=== PATIENT | female | born 1930 | race Caucasian/White ===

== ENCOUNTER 2017-01-04 15:50 | Inpatient (IN) | payer OTHER ==
[~2017-01-04] VITALS: Ht 167.6 cm; Wt 93.5 kg
[~2017-01-04 15:50] MED LIST: ALENDRONATE SOD70 M2 PO; ALLOPURINOL100 MG PO; AMLODIPINE BESYL5 M1 PO; ASPIR 8181 MG PO; ATORVASTATIN CA40 M1 PO; CARVEDILOL25 MG PO; CARVEDILOL3.125 M1 PO; CARVEDILOL6.25 M1 PO; CLEOCIN HCL300 MG PO; COLACE100 MG PO; D3-50001 TAB PO; ENALAPRIL MALEA10 MG PO; ENALAPRIL10 MG PO; ESCITALOPRAM20 M1 PO; FUROCOT40 MG PO; FUROSEMIDE40 MG PO; GABAPENTIN600 M1 PO; GLIPIZIDE5 M2 PO; GLIPIZIDE5 MG PO; GLUCOTROL5 M1 PO; GLUCOTROL5 MG PO; GOOD SENSE OMEP20 MG PO; HYDRALAZINE HCL50 MG PO; HYDROLAZINE; IBUPROFEN600 MG PO; ISOSORBIDE MONO30 MG PO; LAC PO; LASIX40 MG PO; LEVOFLOXACIN I150 ML IV; LIPI20 PO; MACROBID100 MG PO; MASON25 MG PO; METOPROLOL SR25 MG PO; METOPROLOL25 MG PO; OMEPRAZOLE DR20 M1 PO; PROAIR HFA0.09 MG/A1 INH; PROAIR RES117 MCG/Ac IH; REQUIP0.5 MG PO; SORBITRATE PO; TRAMADOL HCL50 MG PO; TRICOR145 MG PO; ZYL100 PO; [UNRECOGNIZED DRUG - OTHER]
[2017-01-04 17:31] LABS: BASOPHIL % 0.6 % (0-2); PLATELET COUNT 160 x10^3mcL (130-400)
[2017-01-04 17:33] LABS: RED CELL DISTRIBUTION WIDTH 16.6 % (11.5-14.5)
[2017-01-04 17:43] LABS: ALKALINE PHOSPHATASE 101 U/L (46-116); ALT/SGPT 16 U/L (14-59); AST/SGOT 18 U/L (15-37); BILIRUBIN TOTAL 0.43 mg/dL (0.20-1.00); CALCIUM 8.6 mg/dL (8.5-10.1); CARBON DIOXIDE 34.7 mmol/L (21-32); CHLORIDE SERUM 99 mmol/L (98-107); CREATININE SERUM 2.2 mg/dL (0.6-1.0); GLUCOSE SERUM 150 mg/dL (74-106); LIPASE 192 IU/L (73-393); POTASSIUM SERUM 3.7 mmol/L (3.5-5.1); SODIUM SERUM 143 mmol/L (136-145); TOTAL PROTEIN, SERUM 7.2 g/dL (6.4-8.2)
[2017-01-04 19:22] LABS: T3 TOTAL 0.98 ng/mL
[2017-01-04 19:26] LABS: CHOLESTEROL/HDL RATIO 3.1; PHOSPHOROUS 4.6 mg/dL (2.5-4.9)
[2017-01-04 19:39] LABS: FREE T4 0.99 ng/dL (0.76-1.46); T4(THYROXINE) 5.9 ug/dL (4.7-13.3)
[2017-01-04 20:01] VITALS: BP 133/57
[2017-01-05 00:50] LABS: microscopic required? YES; urine erythrocyte 1+ (NEGATIVE)
[2017-01-05 05:30] VITALS: BP 115/70
[2017-01-05 06:39] LABS: BASOPHIL % 0.2 % (0-2); PLATELET COUNT 145 x10^3mcL (130-400)
[2017-01-05 06:47] LABS: CALCIUM 8.7 mg/dL (8.5-10.1); CARBON DIOXIDE 38.5 mmol/L (21-32); CHLORIDE SERUM 100 mmol/L (98-107); GLUCOSE SERUM 101 mg/dL (74-106); MAGNESIUM 1.9 mg/dL (1.8-2.4); POTASSIUM SERUM 3.8 mmol/L (3.5-5.1); SODIUM SERUM 143 mmol/L (136-145)
[2017-01-05 06:55] LABS: RED CELL DISTRIBUTION WIDTH 16.8 % (11.5-14.5)
[2017-01-05 08:55] VITALS: BP 114/45
[2017-01-05 13:57] VITALS: BP 113/45
[2017-01-05 17:27] VITALS: BP 138/58
[2017-01-05 20:40] VITALS: BP 136/55
[2017-01-06] VITALS (10 sets, daily range): BP systolic 90–153; BP diastolic 28–62
[2017-01-06 06:22] LABS: CALCIUM 8.8 mg/dL (8.5-10.1); CARBON DIOXIDE 36.7 mmol/L (21-32); CHLORIDE SERUM 99 mmol/L (98-107); CREATININE SERUM 1.7 mg/dL (0.6-1.0); GLUCOSE SERUM 124 mg/dL (74-106); POTASSIUM SERUM 3.9 mmol/L (3.5-5.1); SODIUM SERUM 141 mmol/L (136-145)
[2017-01-06 06:33] LABS: BASOPHIL % 0.2 % (0-2); PLATELET COUNT 136 x10^3mcL (130-400)
[2017-01-06 06:37] LABS: RED CELL DISTRIBUTION WIDTH 16.7 % (11.5-14.5)
[2017-01-07 04:57] VITALS: BP 131/52
[2017-01-07 06:07] LABS: CALCIUM 8.7 mg/dL (8.5-10.1); CARBON DIOXIDE 36.1 mmol/L (21-32); CHLORIDE SERUM 101 mmol/L (98-107); CREATININE SERUM 1.6 mg/dL (0.6-1.0); GLUCOSE SERUM 108 mg/dL (74-106); POTASSIUM SERUM 4.4 mmol/L (3.5-5.1); SODIUM SERUM 142 mmol/L (136-145)
[2017-01-07 06:11] LABS: BASOPHIL % 0.3 % (0-2); PLATELET COUNT 136 x10^3mcL (130-400)
[2017-01-07 06:33] LABS: RED CELL DISTRIBUTION WIDTH 16.8 % (11.5-14.5)
[2017-01-07 08:25] VITALS: BP 143/52
[2017-01-07 12:57] VITALS: BP 152/63
[2017-01-07 17:40] VITALS: BP 137/55
[2017-01-07 20:36] VITALS: BP 121/47
[2017-01-08 05:34] VITALS: BP 140/55
[2017-01-08 06:53] LABS: CALCIUM 8.7 mg/dL (8.5-10.1); CARBON DIOXIDE 36.9 mmol/L (21-32); CHLORIDE SERUM 104 mmol/L (98-107); CREATININE SERUM 1.5 mg/dL (0.6-1.0); GLUCOSE SERUM 114 mg/dL (74-106); PHOSPHOROUS 4.2 mg/dL (2.5-4.9); POTASSIUM SERUM 4.5 mmol/L (3.5-5.1); SODIUM SERUM 142 mmol/L (136-145)
[2017-01-08 07:04] LABS: BASOPHIL % 0.5 % (0-2); PLATELET COUNT 136 x10^3mcL (130-400)
[2017-01-08 07:28] LABS: RED CELL DISTRIBUTION WIDTH 16.7 % (11.5-14.5)
[2017-01-08 08:15] VITALS: BP 154/57
[2017-01-08 17:34] VITALS: BP 165/71
[2017-01-08 17:54] VITALS: BP 128/68
[2017-01-08] MEDS ORDERED: KEFLEX500 M1 PO (17:56)
[2017-01-08] MEDS ORDERED: BD LACTINEX1.4 MG PO (17:56)
== END 2017-01-08 20:08 | disposition home health service (06) | DRG 56 ==
LOC: ED 15:50 → DU 18:43 → MU 18:43 → DU 19:54 → MU 01-07 11:37
PROVIDERS: Emergency Medicine; ADMIT Family Medicine
DX: G30.9 Alzheimer's disease, unspecified (principal); G93.41 Metabolic encephalopathy; N17.0 Acute kidney failure with tubular necrosis; N39.0 Urinary tract infection, site not specified; E44.1 Mild protein-calorie malnutrition; D68.69 Other thrombophilia; I42.2 Other hypertrophic cardiomyopathy; F02.80 Dementia in other diseases classified elsewhere, unspecified severity, without behavioral disturbance, psychotic disturbance, mood disturbance, and anxiety; E11.65 Type 2 diabetes mellitus with hyperglycemia; E11.42 Type 2 diabetes mellitus with diabetic polyneuropathy; E11.51 Type 2 diabetes mellitus with diabetic peripheral angiopathy without gangrene; E86.0 Dehydration; M94.0 Chondrocostal junction syndrome [Tietze]; E78.5 Hyperlipidemia, unspecified; I48.2 Chronic atrial fibrillation; K57.30 Diverticulosis of large intestine without perforation or abscess without bleeding; M48.00 Spinal stenosis, site unspecified; M47.892 Other spondylosis, cervical region; M81.0 Age-related osteoporosis without current pathological fracture; D64.9 Anemia, unspecified; Z68.33 Body mass index [BMI] 33.0-33.9, adult; Z95.810 Presence of automatic (implantable) cardiac defibrillator; Z86.73 Personal history of transient ischemic attack (TIA), and cerebral infarction without residual deficits; D63.8 Anemia in other chronic diseases classified elsewhere
CPT/HCPCS: 82962; 83880; 84439; 97110-GP; 97116-GP; 97530-GP; J0696; J7030; J7620; J8597; Q0092

== ENCOUNTER 2017-03-07 11:59 | Inpatient (IN) | payer OTHER ==
[~2017-03-07] VITALS: Ht 167.6 cm; Wt 87.1 kg
[~2017-03-07 11:59] MED LIST changes: +BD LACTINEX1.4 MG PO; +KEFLEX500 M1 PO
[2017-03-07 13:57] LABS: BASOPHIL % 0.2 % (0-2); PLATELET COUNT 195 x10^3mcL (130-400)
[2017-03-07 13:59] LABS: CARBON DIOXIDE 29.6 mmol/L (21-32); CHLORIDE SERUM 103 mmol/L (98-107); CREATININE SERUM 1.7 mg/dL (0.6-1.0); GLUCOSE SERUM 197 mg/dL (74-106); SODIUM SERUM 143 mmol/L (136-145)
[2017-03-07 14:00] LABS: RED CELL DISTRIBUTION WIDTH 19.1 % (11.5-14.5)
[2017-03-07 14:04] LABS: ALKALINE PHOSPHATASE 91 U/L (46-116); ALT/SGPT 0 U/L (14-59); AST/SGOT 27 U/L (15-37); BILIRUBIN TOTAL 0.43 mg/dL (0.20-1.00)
[2017-03-07 14:13] LABS: ALBUMIN 2.9 g/dL (3.4-5.0)
[2017-03-07 15:32] VITALS: BP 141/67
[2017-03-07 15:35] VITALS: Ht 167.6 cm; Wt 87.1 kg
[2017-03-07 15:51] LABS: CHOLESTEROL/HDL RATIO 3.3; FREE T4 1.06 ng/dL (0.76-1.46); FREE THYROXINE INDEX 2.4 ug/dL (1.4-4.5); PHOSPHOROUS 4.1 mg/dL (2.5-4.9); T4(THYROXINE) 6.7 ug/dL (4.7-13.3)
[2017-03-07 16:53] LABS: T3 TOTAL 0.76 ng/mL
[2017-03-07 19:56] LABS: microscopic required? YES; urine erythrocyte NEGATIVE (NEGATIVE)
[2017-03-07 20:58] VITALS: BP 118/43
[2017-03-08 04:50] LABS: BASOPHIL % 0.5 % (0-2); PLATELET COUNT 138 x10^3mcL (130-400)
[2017-03-08 04:51] LABS: CALCIUM 8.3 mg/dL (8.5-10.1); CARBON DIOXIDE 31.1 mmol/L (21-32); CHLORIDE SERUM 103 mmol/L (98-107); CREATININE SERUM 1.8 mg/dL (0.6-1.0); GLUCOSE SERUM 110 mg/dL (74-106); POTASSIUM SERUM 3.6 mmol/L (3.5-5.1); SODIUM SERUM 141 mmol/L (136-145)
[2017-03-08 04:54] LABS: RED CELL DISTRIBUTION WIDTH 19.3 % (11.5-14.5)
[2017-03-08 05:10] VITALS: BP 136/54
[2017-03-08 10:23] VITALS: BP 108/45
[2017-03-08 14:22] VITALS: BP 121/55
[2017-03-08 18:56] VITALS: BP 146/56
[2017-03-08 22:13] VITALS: BP 152/51
[2017-03-09 05:36] VITALS: BP 146/60
[2017-03-09 06:40] LABS: BASOPHIL % 0.3 % (0-2); PLATELET COUNT 140 x10^3mcL (130-400); RED CELL DISTRIBUTION WIDTH 18.8 % (11.5-14.5)
[2017-03-09 06:52] LABS: CALCIUM 8.7 mg/dL (8.5-10.1); CARBON DIOXIDE 30.6 mmol/L (21-32); CHLORIDE SERUM 100 mmol/L (98-107); CREATININE SERUM 1.6 mg/dL (0.6-1.0); GLUCOSE SERUM 137 mg/dL (74-106); POTASSIUM SERUM 4.4 mmol/L (3.5-5.1); SODIUM SERUM 137 mmol/L (136-145)
[2017-03-09] MEDS ORDERED: XARELTO15 M1 PO (09:24)
[2017-03-09 09:35] VITALS: BP 141/50
[2017-03-09 13:43] VITALS: BP 141/50
== END 2017-03-09 14:36 | disposition home or self-care (01) | DRG 640 ==
LOC: ED 11:59 → DU 14:35
PROVIDERS: Emergency Medicine; Family Medicine
DX: E86.0 Dehydration (principal); I50.43 Acute on chronic combined systolic (congestive) and diastolic (congestive) heart failure; N17.0 Acute kidney failure with tubular necrosis; I82.432 Acute embolism and thrombosis of left popliteal vein; E44.0 Moderate protein-calorie malnutrition; I11.0 Hypertensive heart disease with heart failure; E11.51 Type 2 diabetes mellitus with diabetic peripheral angiopathy without gangrene; E11.40 Type 2 diabetes mellitus with diabetic neuropathy, unspecified; M10.9 Gout, unspecified; M19.90 Unspecified osteoarthritis, unspecified site; M48.061 Spinal stenosis, lumbar region without neurogenic claudication; M81.0 Age-related osteoporosis without current pathological fracture; D64.9 Anemia, unspecified; E78.1 Pure hyperglyceridemia; E03.9 Hypothyroidism, unspecified; F32.9 Major depressive disorder, single episode, unspecified; E66.9 Obesity, unspecified; Z68.31 Body mass index [BMI] 31.0-31.9, adult; Z86.73 Personal history of transient ischemic attack (TIA), and cerebral infarction without residual deficits; Z95.810 Presence of automatic (implantable) cardiac defibrillator; Z79.82 Long term (current) use of aspirin
CPT/HCPCS: 82962; 83880; 84439; 90658; 97110-GP; 97116-GP; 97530-GP; J1644; J1940; J1956; J3490; J7030; Q0092

== ENCOUNTER 2017-05-10 20:43 | Emergency (ER) | payer OTHER ==
[~2017-05-10] VITALS: Ht 167.6 cm; Wt 86.2 kg
[~2017-05-10 20:43] MED LIST changes: +XARELTO15 M1 PO
[2017-05-10 20:53] VITALS: Ht 167.6 cm; Wt 86.2 kg
[2017-05-10 22:22] VITALS: BP 128/63
== END 2017-05-10 22:22 | disposition home or self-care (01) ==
LOC: ED 20:43
DX: R04.0 Epistaxis (principal); I11.0 Hypertensive heart disease with heart failure; I50.9 Heart failure, unspecified; J45.909 Unspecified asthma, uncomplicated; E11.9 Type 2 diabetes mellitus without complications; J44.9 Chronic obstructive pulmonary disease, unspecified; Z86.79 Personal history of other diseases of the circulatory system

== ENCOUNTER 2017-05-17 17:55 | Emergency (ER) | payer OTHER ==
[~2017-05-17] VITALS: Ht 167.6 cm; Wt 88.0 kg
[2017-05-17 18:39] VITALS: Ht 167.6 cm; Wt 88.0 kg
[2017-05-17 21:00] VITALS: BP 146/76
== END 2017-05-17 21:00 | disposition home or self-care (01) ==
LOC: ED 17:55
DX: R04.0 Epistaxis (principal); J44.9 Chronic obstructive pulmonary disease, unspecified; J45.909 Unspecified asthma, uncomplicated; I11.0 Hypertensive heart disease with heart failure; I50.9 Heart failure, unspecified; E11.9 Type 2 diabetes mellitus without complications; Z95.0 Presence of cardiac pacemaker

== ENCOUNTER 2017-08-16 12:02 | Inpatient (IN) | payer OTHER ==
[~2017-08-16] VITALS: Ht 165.1 cm; Wt 90.9 kg
[2017-08-16 12:15] VITALS: Ht 165.1 cm; Wt 90.9 kg
[2017-08-16 15:34] LABS: BASOPHIL % 0.5 % (0-2); PLATELET COUNT 246 x10^3mcL (130-400)
[2017-08-16 15:36] LABS: RED CELL DISTRIBUTION WIDTH 18.6 % (11.5-14.5)
[2017-08-16] MEDS ORDERED: LASIX40 MG PO (15:46)
[2017-08-16] MEDS ORDERED: REQUIP0.5 MG PO (15:48)
[2017-08-16] MEDS ORDERED: NEU300 PO (15:49)
[2017-08-16] MEDS ORDERED: GABAPENTIN300 M4 (15:49)
[2017-08-16 15:51] LABS: ALKALINE PHOSPHATASE 121 U/L (46-116); ALT/SGPT 15 U/L (14-59); AST/SGOT 19 U/L (15-37); BILIRUBIN TOTAL 0.26 mg/dL (0.20-1.00); CALCIUM 9.1 mg/dL (8.5-10.1); CARBON DIOXIDE 27.8 mmol/L (21-32); CHLORIDE SERUM 103 mmol/L (98-107); CREATININE SERUM 2.1 mg/dL (0.6-1.0); GLUCOSE SERUM 85 mg/dL (74-106); POTASSIUM SERUM 3.9 mmol/L (3.5-5.1); SODIUM SERUM 141 mmol/L (136-145); TOTAL PROTEIN, SERUM 7.4 g/dL (6.4-8.2)
[2017-08-16 15:54] LABS: ALBUMIN 3.1 g/dL (3.4-5.0)
[2017-08-16 16:18] LABS: UA SPECIFIC GRAVITY <=1.005 (1.005-1.035); microscopic required? YES; urine erythrocyte 1+ (NEGATIVE)
[2017-08-16 17:55] VITALS: BP 97/61
[2017-08-16 19:00] LABS: MAGNESIUM 2.3 mg/dL (1.8-2.4); PHOSPHOROUS 4.6 mg/dL (2.5-4.9)
[2017-08-16 19:10] LABS: FREE T4 0.96 ng/dL (0.76-1.46); FREE THYROXINE INDEX 2.3 ug/dL (1.4-4.5); T4(THYROXINE) 6.6 ug/dL (4.7-13.3)
[2017-08-16 19:14] LABS: T3 TOTAL 0.69 ng/mL
[2017-08-16 19:24] LABS: BASOPHIL % 0.7 % (0-2); PLATELET COUNT 233 x10^3mcL (130-400)
[2017-08-16 19:25] LABS: RED CELL DISTRIBUTION WIDTH 18.4 % (11.5-14.5)
[2017-08-16 20:43] VITALS: BP 133/49
[2017-08-17 05:27] VITALS: BP 129/50
[2017-08-17 09:28] LABS: BASOPHIL % 0.5 % (0-2); PLATELET COUNT 207 x10^3mcL (130-400)
[2017-08-17 09:32] LABS: RED CELL DISTRIBUTION WIDTH 18.6 % (11.5-14.5)
[2017-08-17 09:35] LABS: rbc morphology (normal/abnorm) ABNORMAL (NORMAL)
[2017-08-17 13:10] LABS: CALCIUM 8.3 mg/dL (8.5-10.1); CARBON DIOXIDE 28.5 mmol/L (21-32); CHLORIDE SERUM 107 mmol/L (98-107); CREATININE SERUM 1.7 mg/dL (0.6-1.0); GLUCOSE SERUM 127 mg/dL (74-106); MAGNESIUM 2.1 mg/dL (1.8-2.4); PHOSPHOROUS 4.6 mg/dL (2.5-4.9); POTASSIUM SERUM 4.5 mmol/L (3.5-5.1); SODIUM SERUM 141 mmol/L (136-145)
[2017-08-17 17:36] VITALS: BP 138/50
[2017-08-17 18:26] VITALS: BP 141/53
[2017-08-17 18:41] VITALS: BP 141/54
[2017-08-17 20:36] VITALS: BP 133/58
[2017-08-17 20:45] VITALS: BP 149/58
[2017-08-17 21:36] LABS: BASOPHIL % 0.4 % (0-2); PLATELET COUNT 202 x10^3mcL (130-400)
[2017-08-17 21:38] LABS: RED CELL DISTRIBUTION WIDTH 17.8 % (11.5-14.5)
[2017-08-18 05:54] VITALS: BP 141/55
[2017-08-18 06:54] LABS: CHLORIDE SERUM 109 mmol/L (98-107); CREATININE SERUM 1.6 mg/dL (0.6-1.0); GLUCOSE SERUM 99 mg/dL (74-106); POTASSIUM SERUM 4.1 mmol/L (3.5-5.1); SODIUM SERUM 144 mmol/L (136-145)
[2017-08-18 07:01] LABS: BASOPHIL % 0.4 % (0-2); PLATELET COUNT 186 x10^3mcL (130-400)
[2017-08-18 07:33] LABS: RED CELL DISTRIBUTION WIDTH 17.5 % (11.5-14.5)
[2017-08-18 08:46] VITALS: BP 127/62
[2017-08-18 10:52] VITALS: BP 140/58
[2017-08-18 12:35] VITALS: BP 112/63
[2017-08-18 16:51] VITALS: BP 134/60
[2017-08-18 20:46] VITALS: BP 149/52
[2017-08-19 05:47] VITALS: BP 136/60
[2017-08-19 06:28] LABS: BASOPHIL % 0.3 % (0-2); PLATELET COUNT 187 x10^3mcL (130-400)
[2017-08-19 06:43] LABS: CALCIUM 8.7 mg/dL (8.5-10.1); CARBON DIOXIDE 28.5 mmol/L (21-32); CHLORIDE SERUM 107 mmol/L (98-107); CREATININE SERUM 1.6 mg/dL (0.6-1.0); GLUCOSE SERUM 119 mg/dL (74-106); POTASSIUM SERUM 3.8 mmol/L (3.5-5.1); SODIUM SERUM 143 mmol/L (136-145)
[2017-08-19 06:49] LABS: RED CELL DISTRIBUTION WIDTH 18.3 % (11.5-14.5)
[2017-08-19 09:20] VITALS: BP 143/43
[2017-08-19 12:57] VITALS: BP 147/60
[2017-08-19 14:19] LABS: BASOPHIL % 1.6 % (0-2); PLATELET COUNT 181 x10^3mcL (130-400)
[2017-08-19 14:28] LABS: RED CELL DISTRIBUTION WIDTH 17.4 % (11.5-14.5)
[2017-08-19 15:57] VITALS: BP 147/60
[2017-08-19] MEDS ORDERED: METAMUCIL0.4 GM PO (16:04)
[2017-08-19] MEDS ORDERED: LACTULOSE10 GM/152 PO (16:18)
[2017-08-19 16:26] VITALS: BP 130/43
== END 2017-08-19 17:43 | disposition home or self-care (01) | DRG 377 ==
LOC: ED 12:02 → DU 16:20
PROVIDERS: Emergency Medicine; Family Medicine; Internal Medicine Gastroenterology
PROC: 0DJ08ZZ Inspection of Upper Intestinal Tract, Via Natural or Artificial Opening Endoscopic (ICD-10-PCS; 2017-08-16)
PROC: 30233N1 Transfusion of Nonautologous Red Blood Cells into Peripheral Vein, Percutaneous Approach (ICD-10-PCS; principal; 2017-08-17 09:30)
PROC: 0DJD8ZZ Inspection of Lower Intestinal Tract, Via Natural or Artificial Opening Endoscopic (ICD-10-PCS; 2017-08-18)
DX: K92.1 Melena (principal); N17.0 Acute kidney failure with tubular necrosis; N39.0 Urinary tract infection, site not specified; E44.0 Moderate protein-calorie malnutrition; I82.509 Chronic embolism and thrombosis of unspecified deep veins of unspecified lower extremity; D50.0 Iron deficiency anemia secondary to blood loss (chronic); K29.70 Gastritis, unspecified, without bleeding; E11.65 Type 2 diabetes mellitus with hyperglycemia; I11.0 Hypertensive heart disease with heart failure; I50.9 Heart failure, unspecified; J44.9 Chronic obstructive pulmonary disease, unspecified; M17.0 Bilateral primary osteoarthritis of knee; Z79.82 Long term (current) use of aspirin; Z79.01 Long term (current) use of anticoagulants; Z99.81 Dependence on supplemental oxygen; Z95.810 Presence of automatic (implantable) cardiac defibrillator
CPT/HCPCS: 43235; 45378; 84439; C9113; J0171; J0696; J1200; J1610; J1940; J2250; J2310; J2916; J3010; J3490; J7030; J7050; P9016; Q0092; Q0163

== ENCOUNTER 2017-08-29 10:02 | Inpatient (IN) | payer OTHER ==
[~2017-08-29] VITALS: Ht 165.1 cm; Wt 90.3 kg
[~2017-08-29 10:02] MED LIST changes: +GABAPENTIN300 M4; +LACTULOSE10 GM/152 PO; +METAMUCIL0.4 GM PO; +NEU300 PO
[2017-08-29 10:13] VITALS: Ht 165.1 cm; Wt 90.3 kg
[2017-08-29 10:50] LABS: BASOPHIL % 0.3 % (0-2); PLATELET COUNT 228 x10^3mcL (130-400)
[2017-08-29 10:53] LABS: RED CELL DISTRIBUTION WIDTH 18.8 % (11.5-14.5)
[2017-08-29 11:17] LABS: ALKALINE PHOSPHATASE 124 U/L (46-116); ALT/SGPT 15 U/L (14-59); AST/SGOT 21 U/L (15-37); BILIRUBIN TOTAL 0.38 mg/dL (0.20-1.00); CALCIUM 8.8 mg/dL (8.5-10.1); CARBON DIOXIDE 28.8 mmol/L (21-32); CHLORIDE SERUM 88 mmol/L (98-107); CREATININE SERUM 2.4 mg/dL (0.6-1.0); GLUCOSE SERUM 268 mg/dL (74-106); POTASSIUM SERUM 3.7 mmol/L (3.5-5.1); TOTAL PROTEIN, SERUM 6.9 g/dL (6.4-8.2)
[2017-08-29 11:25] LABS: ALBUMIN 2.5 g/dL (3.4-5.0); SODIUM SERUM 123 mmol/L (136-145)
[2017-08-29 11:40] LABS: UA SPECIFIC GRAVITY <=1.005 (1.005-1.035); microscopic required? YES; urine erythrocyte NEGATIVE (NEGATIVE)
[2017-08-29 13:44] LABS: CHOLESTEROL/HDL RATIO 3.4; MAGNESIUM 1.8 mg/dL (1.8-2.4); PHOSPHOROUS 4.6 mg/dL (2.5-4.9)
[2017-08-29 13:53] LABS: T3 TOTAL 0.76 ng/mL
[2017-08-29 14:01] VITALS: BP 114/44
[2017-08-29 14:13] LABS: AMPHETAMINE QUAL UR NONE DETECTED (See below)
[2017-08-29 15:05] LABS: FREE T4 1.27 ng/dL (0.76-1.46); FREE THYROXINE INDEX 2.4 ug/dL (1.4-4.5); T4(THYROXINE) 6.4 ug/dL (4.7-13.3)
[2017-08-29 18:26] VITALS: BP 126/67
[2017-08-29 19:32] LABS: CALCIUM 8.8 mg/dL (8.5-10.1); CARBON DIOXIDE 30.8 mmol/L (21-32); CHLORIDE SERUM 90 mmol/L (98-107); CREATININE SERUM 2.3 mg/dL (0.6-1.0); GLUCOSE SERUM 90 mg/dL (74-106); POTASSIUM SERUM 3.6 mmol/L (3.5-5.1); SODIUM SERUM 125 mmol/L (136-145)
[2017-08-29 21:57] VITALS: BP 123/44
[2017-08-29 22:28] LABS: CALCIUM 8.6 mg/dL (8.5-10.1); CARBON DIOXIDE 31.7 mmol/L (21-32); CHLORIDE SERUM 92 mmol/L (98-107); CREATININE SERUM 2.3 mg/dL (0.6-1.0); GLUCOSE SERUM 110 mg/dL (74-106); SODIUM SERUM 125 mmol/L (136-145)
[2017-08-30 05:02] VITALS: BP 137/57
[2017-08-30 06:26] LABS: BASOPHIL % 0.6 % (0-2); PLATELET COUNT 227 x10^3mcL (130-400)
[2017-08-30 07:10] LABS: CALCIUM 8.4 mg/dL (8.5-10.1); CHLORIDE SERUM 93 mmol/L (98-107); CREATININE SERUM 2.1 mg/dL (0.6-1.0); GLUCOSE SERUM 102 mg/dL (74-106); POTASSIUM SERUM 3.4 mmol/L (3.5-5.1); SODIUM SERUM 127 mmol/L (136-145)
[2017-08-30 08:45] LABS: RED CELL DISTRIBUTION WIDTH 19.2 % (11.5-14.5)
[2017-08-30 09:29] VITALS: BP 121/50
[2017-08-30 14:04] VITALS: BP 126/54
[2017-08-30 15:02] VITALS: BP 126/54
[2017-08-30 17:53] VITALS: BP 126/58
[2017-08-30 20:51] VITALS: BP 143/51
[2017-08-31 05:06] VITALS: BP 130/44
[2017-08-31 06:10] LABS: BASOPHIL % 0.6 % (0-2); PLATELET COUNT 223 x10^3mcL (130-400)
[2017-08-31 06:33] LABS: RED CELL DISTRIBUTION WIDTH 19.8 % (11.5-14.5)
[2017-08-31 06:34] LABS: CALCIUM 8.7 mg/dL (8.5-10.1); CARBON DIOXIDE 31.9 mmol/L (21-32); CHLORIDE SERUM 95 mmol/L (98-107); CREATININE SERUM 1.8 mg/dL (0.6-1.0); GLUCOSE SERUM 125 mg/dL (74-106); MAGNESIUM 1.9 mg/dL (1.8-2.4); PHOSPHOROUS 4.4 mg/dL (2.5-4.9); POTASSIUM SERUM 4.4 mmol/L (3.5-5.1); SODIUM SERUM 128 mmol/L (136-145)
[2017-08-31 08:40] VITALS: BP 131/61
[2017-08-31 09:40] VITALS: BP 102/41
[2017-08-31 12:14] VITALS: BP 127/64
[2017-08-31] MEDS ORDERED: NITROFURANTOIN100 MG PO (16:27)
[2017-08-31] MEDS ORDERED: LAC PO (16:28)
[2017-08-31 16:43] VITALS: BP 133/68
[2017-08-31 16:46] VITALS: BP 133/68
== END 2017-08-31 17:55 | disposition hospice, home (50) | DRG 73 ==
LOC: ED 10:02 → DU 12:14
PROVIDERS: Emergency Medicine; Family Medicine
DX: G90.9 Disorder of the autonomic nervous system, unspecified (principal); N17.0 Acute kidney failure with tubular necrosis; E43 Unspecified severe protein-calorie malnutrition; N39.0 Urinary tract infection, site not specified; E87.1 Hypo-osmolality and hyponatremia; E86.0 Dehydration; E11.9 Type 2 diabetes mellitus without complications; N18.9 Chronic kidney disease, unspecified; B95.2 Enterococcus as the cause of diseases classified elsewhere; D53.9 Nutritional anemia, unspecified; K57.30 Diverticulosis of large intestine without perforation or abscess without bleeding; M47.896 Other spondylosis, lumbar region; J45.909 Unspecified asthma, uncomplicated; Z68.32 Body mass index [BMI] 32.0-32.9, adult; Z95.810 Presence of automatic (implantable) cardiac defibrillator; Z86.718 Personal history of other venous thrombosis and embolism
CPT/HCPCS: 83880; 84439; 94150; 97110-GP; 97530-GP; J0696; J1885; J2405; J2543; J3475; J3535; J7030; J7620; Q0092